=== PATIENT | female | born 1990 ===

== ENCOUNTER 2020-10-01 22:09 | Inpatient (IN) | payer SELFPAY ==
[2020-10-01 22:09] VITALS: BP 123/78; PULSE 71; RESP 16; TEMP 36.9; O2SAT 98; BMI 34.4
[2020-10-02 06:00] VITALS: BP 109/73; PULSE 60; RESP 16; TEMP 37.1; O2SAT 100
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
[2020-10-02 14:00] VITALS: BP 110/67; PULSE 66; RESP 18; TEMP 36.6; O2SAT 100
[2020-10-02] MEDS: ondansetron 4 MG Tablet PO (17:55)
[2020-10-02 20:34] VITALS: BP 131/81; PULSE 72; RESP 20; TEMP 36.7; O2SAT 98
[2020-10-02] MEDS: acetaminophen 325 mg Tablet 650 MG PO (20:48)
[2020-10-02] MEDS: trazodone 50 mg Tablet PO (20:48)
[2020-10-02] MEDS: hyDROXYzine 25 mg Capsule 50 MG PO (20:48)
--- NOTE | 2020-10-02 20:49 | PC.NURSE ---
Addendum entered by Doreen Newton LPN 10/03/20 04:52: Vistaril 50mg po for anxiety and Trazodone 50mg po given for sleep. Original Note: pt requested anxiety medication with HS meds.
--- NOTE | 2020-10-02 21:30 | PC.NURSE ---
pt resting quietly with both eyes closed
[2020-10-03 06:00] VITALS: BP 104/68; PULSE 69; RESP 18; TEMP 36.7; O2SAT 97
[2020-10-03] MEDS: acetaminophen 325 mg Tablet 650 MG PO ×2 (07:58→14:41)
[2020-10-03] MEDS: fluoxetine 20 mg Capsule PO (09:23)
[2020-10-03 14:00] VITALS: BP 109/76; PULSE 78; RESP 18; TEMP 36.2; O2SAT 98
--- NOTE | 2020-10-03 17:01 | P.PN_ITS ---
Subjective NPU Subjective: Interval history: Jihan presents today reporting that she is feeling better. She denies any side effects or issues with the Prozac. She reports that she feels better than yesterday and we discussed the risk benefits alternatives of starting the BuSpar as we discussed 50 mg twice a day and she understood and agreed proceed as is documented in this note. She reports he is eating fine and sleeping a little better. Mental Status Exam MSE Comments: This is an obese white female with hospital scrubs on with adequate grooming and eye contact. No abnormal movements except for mild psychomotor retardation. Cooperative with exam in no acute distress. Speech was more normal rate and volume. Mood described as better, affect congruent. Thought process organized. Thought content: Patient denied suicidal homicidal ideation, there are no delusions reported or noted, she denied auditory or visual hallucination. Attention and concentration appeared intact and memory to reliable but none were formally tested. She alert and oriented x3. Insight and judgment are limited, impulse control is limited. Vitals/I&O/Wt Last Vital Signs Temp 98.8 F 10/03/20 19:44 Pulse 78 10/03/20 19:44 Resp 20 H 10/03/20 19:44 BP 114/76 10/03/20 19:44 Pulse Ox 99 10/03/20 19:44 A&P Additional A&P Information (1) Generalized anxiety disorder: (2) Major depressive disorder, recurrent: Additional A&P Information This is a 29-year-old white female with a long history of depression and anxiety with recent suicidal thinking who presents with no previous treatment or medication open to a trial of medication. 1. Continue current medication. Start BuSpar 15 mg p.o. twice daily. 2. Continue every 15 minute checks for safety. 3. Encourage individual, group and milieu therapies. 4. We will evaluate for safety given suicidal thoughts. Involuntary Hold Information 96 Hour Hold: 96 Hour Involuntary Admission: No Attestations NPU Medical Necessity Statement*: Inpatient hospitalization is medically necessary and the clinically appropriate intervention at this time. We will monitor medications and make changes as indicated. Likely length of stay 1-3 days. Coding Level of Care Code Acute Branch Office Administrator for Aida Ricardo
[2020-10-03] MEDS: ondansetron 4 MG Tablet PO (17:21)
[2020-10-03 19:44] VITALS: BP 114/76; PULSE 78; RESP 20; TEMP 37.1; O2SAT 99
[2020-10-03] MEDS: hyDROXYzine 25 mg Capsule 50 MG PO (20:11)
[2020-10-03] MEDS: BuSPIRONE 10 mg Tablet 15 MG PO (20:11)
--- NOTE | 2020-10-03 21:56 | PC.NURSE ---
Patient request medication for insomnia. Trazadone 50 mg po given for this.
[2020-10-04 06:00] VITALS: BP 108/73; PULSE 70; RESP 18; TEMP 36.7; O2SAT 100
[2020-10-04] MEDS: fluoxetine 20 mg Capsule PO (08:29)
[2020-10-04] MEDS: BuSPIRONE 10 mg Tablet 15 MG PO (09:42)
[2020-10-04 11:27] VITALS: BP 108/73; PULSE 70; RESP 18; TEMP 36.7; O2SAT 100
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
== END 2020-10-04 14:23 | disposition home or self-care (01) | DRG 885 ==
PROVIDERS: Admitting Provider Psychiatry & Neurology Psychiatry; Visit Provider Psychiatry & Neurology Psychiatry
DX: F33.9 Major depressive disorder, recurrent, unspecified (principal); R45.851 Suicidal ideations; F41.1 Generalized anxiety disorder; E66.9 Obesity, unspecified; Z63.8 Other specified problems related to primary support group; Z81.8 Family history of other mental and behavioral disorders; Z81.3 Family history of other psychoactive substance abuse and dependence; Z62.810 Personal history of physical and sexual abuse in childhood; Z68.34 Body mass index [BMI] 34.0-34.9, adult
CPT/HCPCS: Q0162